=== PATIENT | male | born 1960 | race Caucasian/White ===

== ENCOUNTER → 2017-10-01 | Outpatient (CLI) | payer BC, OTHER ==
--- NOTE | 2017-10-01 09:04 | DIAGNOSTIC IMAGING REPORT ---
R KNEE 3 VIEWS CLINICAL HISTORY: RIGHT KNEE PAIN pain COMPARISON: None. DISCUSSION: The bones and joint spaces appear intact. There is no evidence of fracture, dislocation or bony disease. There is no evidence for soft tissue swelling. IMPRESSION: Negative study. The above report was generated using voice recognition software. It may contain grammatical, syntax or spelling errors. Electronically signed by: Chaparro Mishra M.D. 10/01/2017 9:01 AM Dictated Date/Time: 10/01/2017 9:01 AM
== END | disposition home or self-care (01) ==
LOC: C.RDSM 12:21
PROVIDERS: ATTEND Family Medicine
DX: M25.561 Pain in right knee (principal)